=== PATIENT | female | born 1960 | race Caucasian/White ===

== ENCOUNTER 2016-05-10 08:34 | Day surgery (SDC) | payer OTHER ==
[2016-05-09 09:40] VITALS: BMI 37.5
[~2016-05-10] VITALS: Ht 165.1 cm; Wt 116.4 kg
[2016-05-10] VITALS (18 sets, daily range): BP systolic 68–150; BP diastolic 46–74; PULSE 72–92; RESP 16–30; Ht 165.1 cm; Wt 116.4 kg
[~2016-05-10 08:34] MED LIST: CEFAZOLIN 1 GM INJ ONE; CEFAZOLIN 2 GM/50 ML (PMX) 50 ML IVPB SCH; SOD CHLORIDE 0.9% 1,000 ML IV SCH; SYN112 PO
--- NOTE | 2016-05-10 09:22 | RADRPT ---
PROCEDURE: XR Chest. CLINICAL INDICATION: Preoperative TECHNIQUE: Single frontal view of the chest was obtained COMPARISON: None FINDINGS: The heart and mediastinum are within normal limits. The lungs are clear. There is no pleural effusion or pneumothorax. RPTAT: AA IMPRESSION: No acute disease. .Bryn Byrd MD, Date Time Electronically viewed and signed by .Bryn Byrd MD, on 05/10/2016 09:21 .S/
[2016-05-10] MEDS ORDERED: MIDAZOLAM 1 MG/ML 2 ML INJ ONE (09:48)
[2016-05-10] MEDS ORDERED: LIDOCAINE 2% (SDV) 5 ML INJ ONE (09:48)
[2016-05-10] MEDS ORDERED: GLYCOPYRROLATE 0.4 MG INJ ONE (09:48)
[2016-05-10] MEDS ORDERED: ROCURONIUM 50 MG INJ ONE (09:48)
[2016-05-10] MEDS ORDERED: FENTAnyl 50 MCG/ML VIAL ONE ×2 (09:48→13:15)
[2016-05-10] MEDS ORDERED: NEOSTIGMINE 3 MG/3 ML SYRINGE ONE (09:48)
[2016-05-10] MEDS ORDERED: PROPOFOL 20 ML ONE (09:48)
[2016-05-10 09:56] LABS: CALCIUM 8.5 mg/dl (8.4-10.2); CREATININE 0.49 mg/dl (0.44-1.00); POTASSIUM 3.9 mmol/L (3.5-5.1)
[2016-05-10 09:57] LABS: BASOPHILS % 0.6 % (0.0-2.0); EOSINOPHILS % 0.5 % (0.0-7.0); HEMOGLOBIN 12.1 g/dl (12.0-16.0); LYMPHOCYTES # 1.9 10^3/ul (0.8-2.9); LYMPHOCYTES % 25.2 % (15.0-51.0); MEAN CORPUSCULAR HEMOGLOBIN 27.9 pg (29.0-33.0); MEAN CORPUSCULAR HGB CONC 33.7 g/dl (32.0-37.0); MEAN CORPUSCULAR VOLUME 82.9 fl (82.0-101.0); MEAN PLATELET VOLUME 10.4 fl (7.4-10.4); MONOCYTE # 0.4 10^3/ul (0.3-0.9); MONOCYTES % 4.9 % (0.0-11.0); NEUTROPHIL # 5.2 10^3/ul (1.6-7.5); NEUTROPHILS % 68.8 % (39.0-77.0); PLATELET COUNT 149 10^3/UL (140-440); RED BLOOD COUNT 4.35 10^6/ul (4.20-5.40); RED CELL DISTRIBUTION WIDTH 14.3 % (11.5-14.5); UNCORRECTED WBC 7.5 10^3/ul (4.8-10.8); WHITE BLOOD COUNT 7.5 10^3/ul (4.8-10.8)
[2016-05-10 09:59] LABS: CONDITION 1
[2016-05-10 10:02] LABS: INR 1.08; PT RATIO 1.1
[2016-05-10 10:03] LABS: PARTIAL THROMBOPLASTIN TIME 29.3 Sec (25.0-35.0)
[2016-05-10] MEDS ORDERED: SUCCINYLCHOLINE CHLORIDE 100 MG/5 ML SYG IV ONE (10:16)
[2016-05-10] MEDS ORDERED: ACETAMINOPHEN/CODEINE #3 TAB PO ONE (13:00)
--- NOTE | 2016-05-10 13:21 | OPR ---
DATE OF OPERATION: 05/10/2016 PREOPERATIVE DIAGNOSIS: Large posterior cervical/thoracic mass. POSTOPERATIVE DIAGNOSIS: Large posterior cervical/thoracic mass. OPERATION PERFORMED: Resection of large posterior surgical/thoracic mass. ANESTHESIA: General. ANESTHESIOLOGIST: Edilson Perez MD SURGEON: Cooper Eubanks MD BACK TENDER CYLINDER: Noah Connell MD INDICATIONS FOR PROCEDURE: The patient is a 55-year-old female who presented with an extremely larg e mass in the posterior cervical and posterior thoracic region, occupying much of the right side and extending over midline to the left side. 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 A CAT scan identified lipomatous changes. She was counseled as to the risks versus benefits of re section. She consented and was scheduled for surgery. DESCRIPTION OF PROCEDURE: The patient was brought to the operating theater, placed under general an esthesia. She was then placed in the prone position. The posterior cervical and thoracic regions w ere prepped and draped in the usual sterile fashion. A relatively large transverse incision was mad e over the mass. The incision was approximately 12 to 15 cm in length. Subcutaneous tissue was diss ected with cautery. Skin edges were then elevated with skin hooks and wide circumferential dissecti on of the mass took place down to the fascia of the posterior thoracic and cervical musculature. Th e mass was then transected off the underlying fascia from medial to lateral. It was removed in 2 pi eces. They were sent together for permanent pathologic analysis. The wound was irrigated. Residua l bleeding was controlled with cautery. Due to the large defect, two #10 flat Ankur-Blount drains were brought through the lateral aspect of the right posterior thorax, cut to size, and laid within the wounds. They were secured in place with 2-0 nylon sutures in a standard fashion, and then the s kin was reapproximated with 2-0 nylon sutures in horizontal mattress fashion. The patient tolerated procedure well. The estimated blood loss was 30 mL. There were no complications, and the patient was transported in stable condition to the recovery room. Dictated By: COOPER EUBANKS MD TL/JENNIFER Conf#: [id number] DID#: [id number]
[2016-05-10] MEDS ORDERED: FENTANYL 100MCG INJ IV PRN (14:00)
--- NOTE | 2016-05-10 16:24 | RADRPT ---
Vent Rate: 76 bpm RR Interval: 0 msec MD Interval: 176 msec QRS Duration: 82 msec QT Interval: 380 msec QTC Interval: 427 msec P-R-T [place]: 40 - 28 - 44 degrees Normal sinus rhythm Normal ECG Electronically Signed By: Shimon Bolden [id number]
== END 2016-05-10 14:30 | disposition home or self-care (01) ==
LOC: SDS 08:34
PROVIDERS: ATTEND Surgery Surgical Oncology
DX: D17.1 Benign lipomatous neoplasm of skin and subcutaneous tissue of trunk (principal); E66.01 Morbid (severe) obesity due to excess calories; Z68.41 Body mass index [BMI] 40.0-44.9, adult
CPT/HCPCS: 11406; 71010; 80048; 82962; 85025; 85610; 85730; 88307; 93005; J0330; J0690; J2250; J2710; J3010; Z7512; Z7610